=== PATIENT | male | born 1985 | race Caucasian/White ===

== ENCOUNTER 2018-05-11 13:12 | Emergency (ER) | payer BC ==
[2018-05-11] MEDS ORDERED: ASPIRIN 81 MG CHEWABLE CTB PO STA (13:13)
[2018-05-11] MEDS ORDERED: NITROGLYCERIN 0.4 MG TAB SL PRN (13:13)
[2018-05-11] MEDS ORDERED: SODIUM CHLORIDE 0.9% FLUSH 10 ML SOL IV PRN (13:13)
[2018-05-11] MEDS ORDERED: METOPROLOL TARTRATE 5 MG/5 ML SOL IV ONE ×2 (13:27→13:38)
[2018-05-11] MEDS ORDERED: ASPIRIN 81 MG CHEWABLE CTB ONE (13:27)
[2018-05-11 13:35] LABS: BASOPHILS % (AUTO) 1 % (0-3); EOSINOPHILS % (AUTO) 2 % (0-9); HEMATOCRIT 48 % (39-53); HEMOGLOBIN 16.3 gm/dl (13.5-17.7); LYMPHOCYTES % (AUTO) 31.5 % (10-50); MEAN CORPUSCULAR HEMOGLOBIN 30.9 pg (27.0-32.0); MEAN CORPUSCULAR HGB CONC 33.7 gm/dl (32.0-36.0); MEAN CORPUSCULAR VOLUME 91 fL (80-100); NEUTROPHILS % (AUTO) 57.2 % (37-80)
[2018-05-11 13:41] LABS: INR 1.01 (0.86-1.12)
[2018-05-11 13:50] LABS: BLOOD UREA NITROGEN 13 mg/dl (7-18); CALCIUM 9.3 mg/dl (8.5-10.1); CARBON DIOXIDE 26.1 mEq/L (21-32); CHLORIDE 100 mMol/L (98-107); CREATINE KINASE 193 U/L (39-308); CREATININE 0.95 mg/dl (0.80-1.30); GLUCOSE 134 mg/dl (74-106); POTASSIUM 3.7 mMol/L (3.5-5.1); SODIUM 138 mMol/L (136-145); TROP I < 0.017 ng/ml (0.000-0.056)
[2018-05-11 13:58] VITALS: TEMP 100.2
[2018-05-11 14:59] VITALS: PULSE 65
[2018-05-11 15:28] VITALS: BP 149/91; RESP 15; O2SAT 97
== END 2018-05-11 15:26 | disposition home or self-care (01) ==
LOC: ED 13:12
DX: I10 Essential (primary) hypertension (principal); R07.89 Other chest pain
CPT/HCPCS: 36415; 71045; 80048; 82550; 84484; 85025; 85610; 85730; 93005; 96374; 99284; 99285; J3490